=== PATIENT | female | born 1980 | race Caucasian/White ===

== ENCOUNTER → 2017-05-20 | Outpatient (CLI) | payer BC ==
[2017-05-20 09:23] LABS: ALT 39 U/L (9-52); AST 19 U/L (14-36); Alkaline Phosphatase 50 U/L (38-126); Anion Gap 7 mmol/L; Blood Urea Nitrogen 15 mg/dL (7-17); Calcium 8.7 mg/dL (8.4-10.2); Carbon Dioxide 27 mmol/L (22-30); Chloride 107 mmol/L (98-107); Cholesterol 179 mg/dL (<200); Glucose 83 mg/dL (74-99); HDL Cholesterol 52 mg/dL (40-60); Non-African American GFR(MDRD) >60 (>60 ml/min/1.73 sqM); Potassium 4.8 mmol/L (3.5-5.1); Sodium 141 mmol/L (137-145); Total Bilirubin 0.2 mg/dL (0.2-1.3); Total Protein 6.4 g/dL (6.3-8.2)
[2017-05-20 10:11] LABS: Basophils # (A) 0.1 k/uL (0-0.2); Basophils % (A) 1 %; CH 30.9; CHCM 32.7; Eosinophils # (A) 0.4 k/uL (0-0.7); Eosinophils % (A) 4 %; HCT 42.8 % (34.0-46.0); HDW 2.25; HGB 13.3 gm/dL (11.4-16.0); Luc # (Auto) 0.31; Luc % (Auto) 4; Lymphocytes # (A) 2.1 k/uL (1.0-4.8); Lymphocytes % (A) 25 %; MCH 29.5 pg (25.0-35.0); MCHC 31.1 g/dL (31.0-37.0); MCV 95.1 fL (80.0-100.0); Mean Platelet Volume 7.2; Monocytes # (A) 0.5 k/uL (0-1.0); Monocytes % (A) 5 %; Neutrophils # (A) 5.3 k/uL (1.3-7.7); Neutrophils % (A) 62 %; RDW 13.4 % (11.5-15.5); WBC 8.5 k/uL (3.8-10.6); WBC (Perox) 8.51
== END | disposition home or self-care (01) ==
LOC: LABWHC1 07:03
PROVIDERS: ATTEND Family Medicine
DX: Z00.00 Encounter for general adult medical examination without abnormal findings (principal)
CPT/HCPCS: 36415; 80053; 80061; 84443; 85025

== ENCOUNTER → 2018-12-03 | Outpatient (CLI) | payer BC ==
--- NOTE | 2018-12-03 10:18 | US ---
EXAMINATION TYPE: US abdomen complete DATE OF EXAM: 12/03/2018 COMPARISON: NONE CLINICAL HISTORY: 38-year-old female [id number] UNSPECIFIED VIRAL HEP B. Chronic viral hepatitis B TECHNIQUE: Multiple sonographic images of the abdomen are obtained. FINDINGS: EXAM MEASUREMENTS: Liver Length: 13.1 cm Gallbladder Wall: 0.1 cm CBD: 0.4 cm Spleen: 9.0 cm Right Kidney: 10.7 x 4.8 x 4.8 cm Left Kidney: 10.4 x 5.2 x 4.6 cm Pancreas: wnl Liver: wnl. No focal lesion. Gallbladder: wnl Evidence for sonographic Rm's sign: no CBD: wnl Spleen: wnl Right Kidney: wnl Left Kidney: wnl Upper IVC: wnl Abd Aorta: wnl IMPRESSION: Unremarkable sonographic examination of the abdomen.
== END | disposition home or self-care (01) ==
LOC: RADUSWWP 07:36
PROVIDERS: ATTEND Family Medicine
DX: B19.10 Unspecified viral hepatitis B without hepatic coma (principal)
CPT/HCPCS: 76700

== ENCOUNTER 2023-05-02 05:53 | Inpatient (IN) | payer BC ==
[2023-04-28 10:50] VITALS: BMI 33.3
[~2023-05-02 05:53] MED LIST: DEXAMETHASONE SOD PHOSPHATE 4 MG/ML 1 ML VIAL IV ONE; HYDROmorphone 0.5 MG/0.5 ML SYRINGE IVP PRN; LACTATED RINGERS 1,000 ML IV SCH; LIDOCAINE 1% (10MG/ML) FOR IV START INTRADERMA PRN; MIDAZOLAM 2 MG/2 ML VIAL IV PRN; ONDANSETRON 4 MG/2 ML VIAL IVP ONE
[2023-05-02] MEDS ORDERED: PROPOFOL 10 MG/ML 20 ML VIAL IV ONE (07:27)
[2023-05-02] MEDS ORDERED: LIDOCAINE 1% INJ 10MG/ML (20 ML MDV) ONE (07:27)
[2023-05-02] MEDS ORDERED: KETOROLAC 15 MG/ML 1 ML VIAL ONE (07:27)
[2023-05-02] MEDS ORDERED: fentaNYL (PF) 50 MCG/ML 2 ML AMP ONE (07:27)
[2023-05-02] MEDS ORDERED: ROCURONIUM 10 MG/ML (5 ML VIAL) IV ONE (07:27)
[2023-05-02] MEDS ORDERED: HYDROmorphone (PF) 1 MG/ML ONE (07:27)
[2023-05-02] MEDS ORDERED: MIDAZOLAM 2 MG/2 ML VIAL ONE (07:27)
[2023-05-02] MEDS ORDERED: GLYCOPYRROLATE 0.2 MG/ML 2 ML VIAL ONE (07:27)
[2023-05-02] MEDS ORDERED: NEOSTIGMINE 1 MG/ML 10 ML VIAL ONE (07:27)
[2023-05-02] MEDS ORDERED: LACTATED RINGERS 1,000 ML IV ONE (08:34)
[2023-05-02] MEDS ORDERED: ONDANSETRON 4 MG/2 ML VIAL IVP PRN (09:05)
[2023-05-02] MEDS ORDERED: diphenhydrAMINE 50 MG/ML 1 ML VIAL IVP PRN (09:05)
[2023-05-02] MEDS ORDERED: SIMETHICONE 80 MG CHEWABLE PO PRN (09:05)
[2023-05-02] MEDS ORDERED: ZOLPIDEM 5 MG TAB PO PRN (09:05)
[2023-05-02] MEDS ORDERED: METOCLOPRAMIDE 5 MG/ML 2 ML VIAL IVP PRN (09:05)
[2023-05-02] MEDS ORDERED: Acetaminophen-Codeine 300-30mg TAB PO PRN ×2 (09:05)
[2023-05-02] MEDS ORDERED: HYDROmorphone PCA 10 MG/50 ML BAG IV PRN (09:08)
--- NOTE | 2023-05-02 09:15 | P.OP ---
Date of Procedure: 05/02/23 Preoperative Diagnosis: #1. 18 week symptomatic fibroid uterus Postoperative Diagnosis: Same Procedure(s) Performed: #1. Total abdominal hysterectomy with bilateral salpingo-oophorectomy Anesthesia: GORDY Surgeon: Jorge Luis Bowen Heeler #1: Dyan Phipps Estimated Blood Loss (ml): 100 IV fluids (ml): 800 Urine output (ml): 280 Pathology: other (Uterus, tubes, and ovaries) Condition: stable Disposition: PACU Operative Findings: Preoperatively, the uterus was palpable just below the umbilicus. Intraoperatively, the uterus had a boggy texture consistent with probable adenomyosis as well as palpable fibroids. It was otherwise mobile and able to be delivered through the incision. Clear urine was seen throughout the entire case. The entire cervix was removed. Description of Procedure: The patient was prepped and draped in usual fashion after general endotracheal anesthesia was administered by the anesthesiologist. A Pfannenstiel incision was made and extended into the abdominal cavity without difficulty. The uterus and pelvis were explored with the findings as noted above. The ovaries were relatively adherent to the posterior aspect of the uterus on each side. The uterus was delivered up and through the incision and a Jas O'Bey self- retaining retractor placed over the top of the uterus and inserted into the incision as a self-retaining retractor. Some of the bowel was packed out of the way. The round ligament on each side was isolated, clamped with a curved Arun-Avoca clamp, cut, and suture-ligated with a stitch of 0 Vicryl on each side. The infundibulopelvic ligament was then isolated by making a window in the posterior leaf of the peritoneum through to the area of the round ligament the incision. Curved Arun-Avoca clamp was placed across the infundibulopelvic ligament on each side were was firmly clamp down. Each pedicle was cut, and suture-ligated with a transfixion stitch of 0 Vicryl followed by a free tie of 0 Vicryl. The bladder peritoneum was created across the lower uterine segment and the bladder reflected distally. The bilateral uterine vasculature was skeletonized and curved Arun-Avoca clamps utilized to clamp each vascular pedicle. Each was cut and suture-ligated with a transfixion stitch of 0 Vicryl. Serial bites were taken down the cardinal ligament using straight Arun-Avoca clamps on each side. Each pedicle was cut and suture-ligated with a transfixion stitch of 0 Vicryl. Hemostasis was excellent throughout. At the angle of the cervix and at the uterosacral ligam ents, curved Jorge Avoca clamps were utilized to come across beneath the cervix at the top of the vagina allowing the specimen to be impeded patient and passed for pathological diagnoses. The uterosacral pedicle on each side was suture-ligated with a transfixion stitch of 0 Vicryl. The intervening open vaginal cuff was closed with a running locking stitch of 0 Vicryl proceeding from one uterosacral pedicle to the other. Thorough irrigation was carried out and there was no significant ongoing bleeding from any of the surgical sites. All instrumentation was then removed as well as the packing that of been placed earlier in the case. The parietal peritoneum was loosely reapproximated in the layer of muscles examined and made hemostatic with the Bovie. The fascia was closed with 2 running stitches of 0 Vicryl proceeding from the lateral margins to the midpoint. The subcutaneous tissues were irrigated, made hemostatic with the Bovie, and reapproximated with a running stitch of 3-0 chromic catgut. The skin was reapproximated with a running subcuticular stitch of 4-0 Vicryl followed by half-inch Steri-Strips placed with Mastisol. Estimated blood loss for the case was approximate 100 mL. There were no complications. All sponge, instrument, needle counts were correct. The patient tolerated the procedure well and proceeded to the recovery room in stable condition.
[2023-05-02] MEDS: LACTATED RINGERS 1,000 ML IV SCH ×2 (10:17→16:11)
[2023-05-02 11:19] LABS: Amorphous Sediment,Urine Rare /hpf; Appearance,Urine Turbid (Clear); Bilirubin,Urine Negative (Negative); Blood,Urine Moderate (Negative); Color,Urine Yellow; Glucose,Urine (UA) Negative (Negative); Ketones,Urine Negative (Negative); Leukocyte Esterase,Urine Negative (Negative); Mucus,Urine Rare /hpf; Nitrite,Urine Negative (Negative); Protein,Urine Trace (Negative); RBC,Urine 18 /hpf (0-5); Specific Gravity,Urine 1.022 (1.001-1.035); Squamous Epithelial Cell,Urine 1 /hpf (0-4); Urobilinogen,Urine <2.0 mg/dL (<2.0)
[2023-05-02] MEDS ORDERED: NALBUPHINE 10 MG/ML (10 ML MDV) IV PRN ×2 (12:15→12:16)
[2023-05-02] MEDS: KETOROLAC 15 MG/ML 1 ML VIAL IVP PRN (14:53)
[2023-05-02] MEDS: SENNOSIDES-DOCUSATE SODIUM 1 EACH TAB PO SCH (19:55)
[2023-05-03 00:23] VITALS: RESP 16
[2023-05-03] MEDS: KETOROLAC 15 MG/ML 1 ML VIAL IVP PRN (03:28)
[2023-05-03] MEDS: ACETAMINOPHEN TAB 325 MG TAB PO PRN ×2 (06:08→11:44)
[2023-05-03 06:52] LABS: Basophils % (A) 0 %; Eosinophils % (A) 0 %; HCT 37.6 % (34.0-46.0); HGB 12.2 gm/dL (11.4-16.0); Lymphocytes % (A) 14 %; MCH 28.8 pg (25.0-35.0); MCHC 32.6 g/dL (31.0-37.0); MCV 88.6 fL (80.0-100.0); Mean Platelet Volume 7.1; Monocytes % (A) 7 %; Neutrophils # (A) 11.3 k/uL (1.3-7.7); Neutrophils % (A) 77 %; Platelet Count 376 k/uL (150-450); RBC 4.24 m/uL (3.80-5.40); RDW 12.9 % (11.5-15.5); WBC 14.8 k/uL (3.8-10.6)
[2023-05-03] MEDS: IBUPROFEN 600 MG TAB PO PRN ×2 (09:00→14:59)
--- NOTE | 2023-05-03 09:19 | P.PN ---
Subjective Progress Note Date: 05/03/23 Principal diagnosis: Fibroid uterus Pain well controlled overnight. Passing some gas. No bowel movement yet. Objective - Vital Signs Vital signs: Vital Signs Temp 98.9 F 05/03/23 00:00 Pulse 76 05/03/23 00:00 Resp 16 05/03/23 00:00 BP 128/66 05/03/23 00:00 Pulse Ox 95 05/03/23 00:00 FiO2 Intake & Output 05/02/23 05/03/23 05/03/23 18:59 06:59 18:59 Intake Total 1050 Output Total 780 500 Balance 270 -500 Intake: IV 1050 Output: Urine 680 500 Uretheral ([place]) 50 Estimated Blood Loss 100 Other: Voiding Method Indwelling Catheter # Voids 1 - Constitutional General appearance: Present: average body habitus, no acute distress - Respiratory Respiratory: bilateral: CTA - Cardiovascular Rhythm: regular - Gastrointestinal Gastrointestinal Comment(s): Incision intact, no erythema, bleeding or discharge General gastrointestinal: Present: normal bowel sounds, tenderness. Absent: distended - Neurologic Neurologic: Absent: focal deficits - Psychiatric Psychiatric: Present: appropriate affect - Labs CBC & Chem 7: 05/03/23 06:18 Labs: Abnormal Lab Results - Last 24 Hours (Table) 05/02/23 05/03/23 Range/Units 10:52 06:18 WBC 14.8 H (3.8-10.6) k/uL Neutrophils # 11.3 H (1.3-7.7) k/uL Urine Appearance Turbid H (Clear) Urine Protein Trace H (Negative) Urine Blood Moderate H (Negative) Urine RBC 18 H (0-5) /hpf Amorphous Sediment Rare H (None) /hpf Urine Mucus Rare H (None) /hpf Assessment and Plan (1) Fibroid uterus Current Visit: Yes Status: Acute Code(s): D25.9 - LEIOMYOMA OF UTERUS, UNSPECIFIED SNOMED Code(s): 47047845 (2) S/P TAMIKO-BSO Current Visit: Yes Status: Acute Code(s): Z90.710 - ACQUIRED ABSENCE OF BOTH CERVIX AND UTERUS; Z90.722 - ACQUIRED ABSENCE OF OVARIES, BILATERAL; Z90.79 - ACQUIRED ABSENCE OF OTHER GENITAL ORGAN(S) SNOMED Code(s): 135735765 Plan: Postop day 1 status post total abdominal hysterectomy with bilateral salpingo- oophorectomy. No bowel movement yet. Pain well-controlled. Anticipate discharge home tomorrow.
[2023-05-03] MEDS: SENNOSIDES-DOCUSATE SODIUM 1 EACH TAB PO SCH (15:00)
[2023-05-03 15:41] VITALS: BP 123/62; PULSE 72; TEMP 98.5
== END 2023-05-03 18:18 | disposition home or self-care (01) | DRG 743 ==
LOC: 2ORMAIN 05:53 → 4FBP 09:20
PROVIDERS: ADMIT Obstetrics & Gynecology; ATTEND Obstetrics & Gynecology
PROC: 0UT70ZZ Resection of Bilateral Fallopian Tubes, Open Approach (ICD-10-PCS; 2023-05-02)
PROC: 0UT20ZZ Resection of Bilateral Ovaries, Open Approach (ICD-10-PCS; 2023-05-02)
PROC: 0UT90ZZ Resection of Uterus, Open Approach (ICD-10-PCS; principal; 2023-05-02 07:30)
DX: D25.9 Leiomyoma of uterus, unspecified (principal); N80.03 Adenomyosis of the uterus
CPT/HCPCS: 81001; 81025; 85025; 88307